=== PATIENT | female | born 1995 | race Caucasian/White ===

== ENCOUNTER 2021-02-13 14:46 | Emergency (ER) | payer MEDICAID ==
[~2021-02-13] VITALS: Ht 154.9 cm; Wt 65.8 kg
[2021-02-13 14:46] VITALS: BP 151/79
--- NOTE | 2021-02-13 14:54 | NUR ---
AT BEDSIDE FOR EVAL.
[2021-02-13] MEDS ORDERED: LORAZEPAM 0.5 MG TABLET PO ONE (15:00)
[2021-02-13] MEDS ORDERED: LORAZEPAM 0.5 MG TABLET ONE (15:03)
--- NOTE | 2021-02-13 15:07 | NUR ---
ER PHLEB AT BEDSIDE FOR BLOOD DRAW.
[2021-02-13 15:27] LABS: BASOPHILS # (AUTO) 0.1 /CMM (0.0-0.2); BASOPHILS % (AUTO) 0.8 % (0.0-2.0); EOSINOPHILS % (AUTO) 1.3 % (0.0-6.0); HEMATOCRIT 44 % (33-45); HEMOGLOBIN 14.8 g/dL (11.5-14.8); LYMPHOCYTES # (AUTO) 2.2 /CMM (0.8-4.8); LYMPHOCYTES % (AUTO) 30.1 % (20.0-44.0); MEAN CORPUSCULAR HGB CONC 34 g/dl (31.0-36.0); MEAN CORPUSCULAR VOLUME 91 fL (82-100); MONOCYTES # (AUTO) 0.4 /CMM (0.1-1.30); NEUTROPHILS # (AUTO) 4.4 /CMM (1.8-8.9); NEUTROPHILS % (AUTO) 61.8 % (43.0-81.0); PLATELET COUNT (AUTO) 290 /CMM (150-450); RED BLOOD CELL COUNT(AUTO) 4.82 MIL/uL (4.0-5.2); WHITE BLOOD COUNT (AUTO) 7.2 K/uL (4.3-11.0)
[2021-02-13 15:34] LABS: CALCIUM, SERUM 9.3 mg/dL (8.5-10.1); CREATININE 0.8 mg/dL (0.6-1.3)
--- NOTE | 2021-02-13 16:23 | NUR ---
Patient discharged to home in stable condition. Written and verbal after care instructions given. Patient verbalizes understanding of instruction.
== END 2021-02-13 16:23 | disposition home or self-care (01) ==
LOC: ER 14:47
DX: R06.4 Hyperventilation (principal); F41.9 Anxiety disorder, unspecified
CPT/HCPCS: 36415; 80048-TC; 85025-TC